=== PATIENT | female | born 1985 | race Caucasian/White ===

== ENCOUNTER 2019-02-06 09:02 | Day surgery (SDC) | payer MEDICAID, OTHER ==
[~2019-02-06] VITALS: Ht 162.6 cm; Wt 73.4 kg
[~2019-02-06 09:02] MED LIST: FERR240T9 PO; MOTRIN; PRENAT PO
[2019-02-06 09:46] VITALS: Ht 162.6 cm; Wt 73.4 kg
[2019-02-06 09:52] VITALS: BP 112/70; PULSE 61; RESP 16
[2019-02-06] MEDS ORDERED: MIDAZOLAM 1 MG/ML 2 ML INJ ONE ×4 (10:44)
[2019-02-06] MEDS ORDERED: FENTAnyl 50 MCG/ML VIAL ONE (10:44)
[2019-02-06 11:01] VITALS: BP 96/52; PULSE 71; RESP 20
== END 2019-02-06 12:18 | disposition home or self-care (01) ==
LOC: GIL 09:02
PROVIDERS: ATTEND Internal Medicine Gastroenterology
DX: K64.8 Other hemorrhoids (principal)
CPT/HCPCS: 45378; 84703; J2250; J3010; Z7610